=== PATIENT | male | born 1940 | race Caucasian/White ===

== ENCOUNTER 2016-08-03 08:53 | Emergency (ER) | payer MEDICARE, OTHER ==
[~2016-08-03] VITALS: Ht 177.8 cm; Wt 88.3 kg
[2016-08-03 08:58] VITALS: BP 149/83; PULSE 83; RESP 15; TEMP 98.6; O2SAT 97
[2016-08-03] MEDS ORDERED: FINA5TAB2 PO (09:11)
[2016-08-03] MEDS ORDERED: ASPI81CH CHEW (09:11)
[2016-08-03 09:12] LABS: BLOOD, URINE TRACE (NEG); GLUCOSE,URINE NEG (NEG); KETONE, URINE NEG (NEG); NITRITE,URINE NEG (NEG); PH, URINE 5.5 (5.0-8.5)
[2016-08-03 09:16] LABS: METHOD OF COLLECTION CLEAN CATCH; URINE COLOR YELLOW (YELLW/STRAW)
[2016-08-03 09:17] LABS: COMMENT (UR) CULT NOT INDICATED; CULTURE IF INDICATED CULT NOT INDICATED; MUCUS URINE FEW /lpf (OCC); RBC, URINE 0-3 /hpf (0-3); SQUAMOUS EPITHELIAL CELL URINE 0-5 /hpf (0-5); WBC, URINE 0-2 /hpf (0-5)
--- NOTE | 2016-08-03 09:24 | PD ---
HPI Chief Complaint: Flank/Kidney Pain Time Seen by Provider: 09:08 Travel History International Travel<30 days: No Contact w/Intl Traveler<30days: No Traveled to known affect area: No History of Present Illness HPI Pleasant 75-year-old male here with complaint of hematuria. Yesterday he had 2 episodes of urination with blood. Describes this as "watermelon juice", no clot. Patient has noticed a slight amount of pressure within the suprapubic region, and low back but no CVA pain. No fevers or chills. He feels as though he is able to empty his bladder without any difficulty. Notes a history of BPH and ureterolithiasis. Patient states however this pressure is certainly different than the sharp pain he typically has with his ureterolithiasis. He sees a urologist in [facility], and intends to go home at approximate 1.5 weeks. Patient has urinated several times this morning without any hematuria. PFSH Past Medical History Genitourinary: Yes (ENLARGED PROSTATE) ?: Not Past Surgical History Appendectomy: Yes Tonsillectomy: Yes Other Surgery: Yes (SINUS X2) Social History Alcohol Use: No Tobacco Use: No Substance Use: No Allergies-Medications (Allergen,Severity, Reaction): Coded Allergies: Sulfa (Verified Allergy, Severe, HIVES, 08/03/16) Reported Meds & Prescriptions Reported Meds & Active Scripts Active Reported Aspirin 81 Mg Chew 81 Mg CHEW DAILY Finasteride 5 Mg Tab 5 Mg PO DAILY Do not crush. Review of Systems Except as stated in HPI: all other systems reviewed are Neg Physical Exam Narrative GENERAL: Well-appearing male in no acute distress SKIN: Warm and dry. HEAD: Normocephalic. EYES: No scleral icterus. No injection or drainage. ENT: . Mucous membranes pink and moist. NECK: Supple CARDIOVASCULAR: Regular rate and rhythm. RESPIRATORY: No accessory muscle use. GASTROINTESTINAL: Abdomen soft, non-tender, nondistended. No CVA tenderness to palpation MUSCULOSKELETAL: Normal gait NEUROLOGICAL: Awake and alert. Normal speech. PSYCHIATRIC: Appropriate mood and affect; insight and judgment normal. Data Data Last Documented VS Vital Signs Date Time Temp Pulse Resp B/P Pulse Ox O2 Delivery O2 Flow Rate FiO2 08/03/16 08:58 98.6 83 15 149/83 97 Orders Urinalysis - C+S If Indicated (08/03/16 09:03) Labs Laboratory Tests Test 08/03/16 09:00 Urine Collection Type CLEAN CATCH Urine Color YELLOW Urine Turbidity CLEAR Urine pH 5.5 Urine Specific [place] 1.024 Urine Protein NEG mg/dL Urine Glucose (UA) NEG mg/dL Urine Ketones NEG mg/dL Urine Occult Blood TRACE Urine Nitrite NEG Urine Bilirubin NEG Urine Leukocyte Esterase NEG Urine RBC 0-3 /hpf Urine WBC 0-2 /hpf Urine Squamous Epithelial 0-5 /hpf Cells Urine Mucus FEW /lpf Microscopic Urinalysis Comment CULT NOT INDICATED Urine Collection Time 09:00 [facility] Medical Decision Making Medical Screen Exam Complete: Yes Emergency Medical Condition: Yes Medical Record Reviewed: Yes Differential Diagnosis 75-year-old male with history of ureterolithiasis, BPH here with 2 episodes of hematuria yesterday, now resolved. Differential includes urinary tract infection, ureterolithiasis, prostatitis, bladder mass. Narrative Course Urinalysis was obtained with only trace hematuria. No evidence of infection. Patient was encouraged to follow up with urology either here or in [facility] for potential outpatient cystoscopy. Diagnosis Primary Impression: Hematuria Referrals: Abdi Molina DO as needed Urologist call for appointment Patient Instructions: General Instructions, Hematuria (ED) Additional Instructions: Follow-up with urologist as discussed. This can be both with your primary urologist in [facility] or here with Dr. Molina. Urine sample today was normal without any evidence of infection. Return to the emergency department for the warning signs discussed. Med/Other Pt SpecificInfo: No Change to Meds Disposition: 01 DISCHARGE HOME Condition: Stable Cookie Sousa MD Aug 03, 2016 09:24
== END 2016-08-03 09:47 | disposition home or self-care (01) ==
LOC: PHED 09:00
DX: R31.9 Hematuria, unspecified (principal)
CPT/HCPCS: 81001; 99283